=== PATIENT | male | born 1970 | race Hispanic/Latino ===

== ENCOUNTER 2020-03-28 07:30 | Outpatient (CLI) | payer MEDICARE, OTHER ==
[2020-03-28 10:15] LABS: Anion Gap 12 mmol/L (10-20); BUN (Urea Nitrogen) 20 mg/dL (8.9-20.6); Calc. Creatinine Clearance 0 mL/min (70-130); Calcium 9.6 mg/dL (7.8-10.44); Carbon Dioxide 28 mmol/L (22-29); Chloride 104 mmol/L (98-107); Estimated GFR-MDRD 78; Glucose 98 mg/dL (70-105); Potassium 4.2 mmol/L (3.5-5.1); Sodium 140 mmol/L (136-145)
[2020-03-28 10:16] LABS: Hemoglobin 16.5 g/dL (14.0-18.0); Mean Corpuscular HGB CONC 33.7 g/dL (32.0-36.0); Mean Corpuscular Hemoglobin 32.1 pg (27.0-31.0); Mean Corpuscular Volume 95.5 fL (78.0-98.0); Mean Platelet Volume 9.5 fL (7.4-10.4); Platelet Count 90 thou/uL (130-400); RBC Distribution Width 11.4 % (11.5-14.5); Red Blood Cell (RBC) Count 5.13 mill/uL (4.70-6.10); White Blood Cell (WBC) Count 8.6 thou/uL (4.8-10.8)
[2020-03-28 18:23] LABS: SARS-CoV-2 MS2 Positive; SARS-CoV-2 N Gene Negative; SARS-CoV-2 S Gene Negative; SARS-CoV-2 orf1ab Negative
== END 2020-03-28 07:31 | disposition home or self-care (01) ==
LOC: LABBT 07:30
PROVIDERS: ATTEND Neurological Surgery
DX: Z01.812 Encounter for preprocedural laboratory examination (principal); Z11.59 Encounter for screening for other viral diseases; M54.12 Radiculopathy, cervical region
CPT/HCPCS: 80048; 85027; U0002; 87635; U0003

== ENCOUNTER 2020-03-31 06:43 | Day surgery (SDC) | payer MEDICARE, OTHER ==
[2020-03-28 09:09] VITALS: BMI 25.0
== END 2020-03-31 07:35 | disposition home or self-care (01) ==
LOC: SDC 06:43
PROVIDERS: ATTEND Neurological Surgery
DX: M54.12 Radiculopathy, cervical region (principal); Z53.09 Procedure and treatment not carried out because of other contraindication; Z79.899 Other long term (current) drug therapy; Z88.1 Allergy status to other antibiotic agents

== ENCOUNTER 2022-07-01 12:12 | Outpatient (CLI) | payer MEDICARE, OTHER ==
[2022-07-01 13:05] LABS: Hemoglobin 15.1 g/dL (13.5-17.5); Mean Corpuscular HGB CONC 35.9 g/dL (32.0-36.0); Mean Corpuscular Hemoglobin 32.3 pg (27.0-33.0); Mean Corpuscular Volume 90.1 fl (81.2-95.1); Mean Platelet Volume 10.9 fl (7.4-10.4); Platelet Count 127 10x3/uL (150-450); RBC Distribution Width 12.8 % (11.5-14.5); Red Blood Cell (RBC) Count 4.67 10x6/uL (4.32-5.72); White Blood Cell (WBC) Count 6.1 10x3/uL (3.5-10.5)
[2022-07-01 13:13] LABS: Anion Gap 10 mmol/L (10-20); BUN (Urea Nitrogen) 9 mg/dL (8.9-20.6); Calc. Creatinine Clearance 0 mL/min (70-130); Calcium 9.1 mg/dL (7.8-10.44); Carbon Dioxide 27 mmol/L (22-29); Chloride 106 mmol/L (98-107); Estimated GFR 103; Glucose 97 mg/dL (70-105); Potassium 4.1 mmol/L (3.5-5.1); Sodium 139 mmol/L (136-145)
== END 2022-07-01 12:13 | disposition home or self-care (01) ==
LOC: LABBT 12:12
PROVIDERS: ATTEND Neurological Surgery
DX: Z01.812 Encounter for preprocedural laboratory examination (principal); M54.12 Radiculopathy, cervical region; Z20.822 Contact with and (suspected) exposure to COVID-19
CPT/HCPCS: 80048; 85027; 87811

== ENCOUNTER 2022-07-05 06:43 | Day surgery (SDC) | payer MEDICARE, OTHER ==
[2022-07-01 12:49] VITALS: BMI 28.8
[2022-07-05] MEDS ORDERED: Midazolam HCl 2 mg/2 ml Vial ONE (09:03)
[2022-07-05] MEDS ORDERED: fentaNYL Citrate/PF 100 MCG/2 ML SYRINGE ONE (09:03)
[2022-07-05] MEDS ORDERED: Sodium Chloride 0.9% 100 ML ONE (09:05)
[2022-07-05] MEDS ORDERED: CEFAZOLIN 2 GM VIAL ONE (09:05)
[2022-07-05] MEDS ORDERED: Rocuronium Bromide 10 MG/ML (10ML VIAL) ONE (09:14)
[2022-07-05] MEDS ORDERED: PROPOFOL 200 MG/20 ML VIAL ONE (09:14)
[2022-07-05] MEDS ORDERED: Lidocaine 1% PF 5 ML VIAL ONE (09:14)
[2022-07-05] MEDS ORDERED: Ondansetron PF 4 MG/2 ML Vial ONE (09:14)
[2022-07-05] MEDS ORDERED: ePHEDrine 50 MG/ML VIAL ONE (09:14)
[2022-07-05] MEDS ORDERED: Ketorolac Tromethamine 30 MG/ML VIAL ONE (09:14)
[2022-07-05] MEDS ORDERED: Dexamethasone 20 MG/5 ML VIAL ONE (09:14)
[2022-07-05] MEDS ORDERED: SUGAMMADEX SODIUM 200 MG/2 ML VIAL ONE (10:03)
[2022-07-05] MEDS ORDERED: HYDROmorphone 0.5 MG/0.5 ML SYRINGE ONE ×2 (10:31→10:44)
[2022-07-05] MEDS ORDERED: Tamsulosin HCl 0.4 MG CAP ONE (10:48)
[2022-07-05] MEDS ORDERED: Fentanyl 100 MCG/2 ML VIAL ONE (11:00)
[2022-07-05] MEDS ORDERED: HYDROcodone/Acetaminophen 5/325 mg Tablet ONE (12:54)
== END 2022-07-05 13:18 | disposition home or self-care (01) ==
LOC: SDC 06:43
PROVIDERS: ATTEND Neurological Surgery
PROC: 0RG20A0 Fusion of 2 or more Cervical Vertebral Joints with Interbody Fusion Device, Anterior Approach, Anterior Column, Open Approach (ICD-10-PCS; principal; 2022-07-05)
DX: M50.122 Cervical disc disorder at C5-C6 level with radiculopathy (principal); G89.29 Other chronic pain; E78.5 Hyperlipidemia, unspecified; Z79.899 Other long term (current) drug therapy; Z88.1 Allergy status to other antibiotic agents
CPT/HCPCS: 76000; 93005; 93010; C1713; J0690; J1100; J1170; J1885; J2250; J2405; J2704; J3010; J3370; J3490